=== PATIENT | male | born 1980 | race Caucasian/White ===

== ENCOUNTER 2023-11-20 23:12 | Inpatient (IN) | payer OTHER ==
[2023-11-21] VITALS: BMI 25.7
[2023-11-21] MEDS ORDERED: NALOXONE HCL (KLOXXADO) 8 MG SPRAY NS PRN (01:33)
[2023-11-21] MEDS ORDERED: MAG HYDROX/AL HYDROX/SIMETH 30 ML UNIT-DOSE CUP PO PRN (01:33)
[2023-11-21] MEDS ORDERED: IBUPROFEN 400 MG TABLET (FP) PO PRN (01:33)
[2023-11-21] MEDS ORDERED: BISMUTH SUBSALICYLATE 524 MG/30 ML PO PRN (01:33)
[2023-11-21] MEDS ORDERED: ACETAMINOPHEN 325 MG TABLET (FP) PO PRN (01:33)
[2023-11-21] MEDS ORDERED: LOPERAMIDE HCL 2 MG CAPSULE PO PRN (01:33)
[2023-11-21] MEDS ORDERED: NALOXONE HCL 0.4 MG/ML VIAL IM PRN (01:33)
[2023-11-21] MEDS ORDERED: ONDANSETRON *ODT* 4 MG TABLET SL PRN (01:33)
[2023-11-21] MEDS ORDERED: BENZOCAINE/MENTHOL (CHLORASEPTIC ) LOZENGE MM PRN (01:33)
[2023-11-21] MEDS ORDERED: MAGNESIUM HYDROX 2400MG/30ML ORAL SUSPENSION 30 ML CUP PO PRN (01:33)
[2023-11-21] MEDS ORDERED: BENZONATATE 200 MG CAPSULE PO PRN (01:33)
[2023-11-21] MEDS ORDERED: DICYCLOMINE HCL 10 MG CAPSULE PO PRN (01:33)
[2023-11-21] MEDS ORDERED: POLYETHYLENE GLYCOL (HEALTHYLAX) 3350 17 GM PACKET PO PRN (01:33)
[2023-11-21] MEDS ORDERED: guaiFENesin 600 MG TABLET.ER (FP) PO PRN (01:33)
[2023-11-21] MEDS ORDERED: chlordiazePOXIDE HCL 25 MG CAPSULE PO PRN (09:24)
[2023-11-21] MEDS: PRENATAL VITAMINS W/ FOLIC ACID TABLET (FP) PO SCH (10:21)
[2023-11-21] MEDS: DIVALPROEX NA *ER* EXTEND REL 500 MG TABLET.SA (FP) PO SCH (10:22)
[2023-11-21] MEDS: chlordiazePOXIDE HCL 25 MG CAPSULE PO SCH (10:22)
[2023-11-21] MEDS ORDERED: MELATONIN 5 MG TABLETS PO SCH (22:00)
[2023-11-21] MEDS: THIAMINE 100 MG TABLET PO SCH (22:30)
[2023-11-21] MEDS: SUVOREXANT 10 MG TABLET PO PRN (22:32)
[2023-11-22 10:16] LABS: HEMATOCRIT 42.7 % (35.4-49); HEMOGLOBIN 14.6 GM/dL (11.7-16.9); MCH 32.4 pg (25.7-33.7); MCHC 34.2 g/dl (32.0-35.9); MEAN CELL VOLUME 94.8 fl (80-96); MEAN PLT VOLUME 8.2 fl (7.5-11.1); PLATELET COUNT 237 10^3/uL (134-434); RBC 4.51 M/mm3 (4.00-5.60); RDW 14.6 % (11.9-15.9); WHITE BLOOD COUNT 5.4 K/mm3 (4.0-10.0)
[2023-11-22 10:25] LABS: ALBUMIN 3.4 g/dl (3.4-5.0); BLOOD UREA NITROGEN 11.6 mg/dL (7-18)
[2023-11-22 10:28] LABS: CREATININE 0.7 mg/dL (0.55-1.3)
[2023-11-22 10:30] LABS: BILIRUBIN,TOTAL 0.2 mg/dL (0.2-1); TOT PROT 6.4 g/dl (6.4-8.2)
[2023-11-23] MEDS: chlordiazePOXIDE HCL 25 MG CAPSULE PO SCH (05:42)
[2023-11-23] MEDS: IBUPROFEN 600 MG TABLET (FP) PO PRN (07:20)
[2023-11-24] MEDS ORDERED: chlordiazePOXIDE HCL 10 MG CAPSULE PO PRN
[2023-11-24] MEDS: chlordiazePOXIDE HCL 10 MG CAPSULE PO SCH (05:45)
[2023-11-24] MEDS: METHOCARBAMOL 500 MG TABLET PO PRN (23:01)
[2023-11-25] MEDS: chlordiazePOXIDE HCL 10 MG CAPSULE PO SCH (05:29)
[2023-11-26] MEDS: chlordiazePOXIDE HCL 10 MG CAPSULE PO ONE (05:40)
[2023-11-26] MEDS: hydrOXYzine PAMOATE 25 MG CAPSULE (FP) PO PRN (22:25)
[2023-11-27 09:13] VITALS: BP 125/79; PULSE 90; RESP 18; TEMP 98.2
== END 2023-11-27 11:45 | disposition other institution (70) | DRG 774 ==
LOC: YASAS 23:12 → Y6N 11-21 01:57
PROVIDERS: ADMIT Allergy & Immunology; ATTEND Surgery
PROC: HZ2ZZZZ Detoxification Services for Substance Abuse Treatment (ICD-10-PCS; principal; 2023-11-21)
DX: F10.230 Alcohol dependence with withdrawal, uncomplicated (principal); F14.20 Cocaine dependence, uncomplicated; F19.282 Other psychoactive substance dependence with psychoactive substance-induced sleep disorder; F19.24 Other psychoactive substance dependence with psychoactive substance-induced mood disorder; F32.9 Major depressive disorder, single episode, unspecified; G40.A09 Absence epileptic syndrome, not intractable, without status epilepticus; R20.2 Paresthesia of skin
CPT/HCPCS: 36415; 80053; 80164; 80307; 85027; 86780; 87811; 93005; 93010

== ENCOUNTER 2023-11-27 11:53 | Inpatient (IN) | payer OTHER ==
[2023-11-27] MEDS ORDERED: IBUPROFEN 400 MG TABLET (FP) PO PRN (13:42)
[2023-11-27] MEDS ORDERED: IBUPROFEN 600 MG TABLET (FP) PO PRN (13:42)
[2023-11-27] MEDS ORDERED: BENZOCAINE/MENTHOL (CHLORASEPTIC ) LOZENGE MM PRN (13:42)
[2023-11-27] MEDS ORDERED: LOPERAMIDE HCL 2 MG CAPSULE PO PRN (13:42)
[2023-11-27] MEDS ORDERED: guaiFENesin 600 MG TABLET.ER (FP) PO PRN (13:42)
[2023-11-27] MEDS ORDERED: NICOTINE 7 MG/24 HOURS TOPICAL PATCH TD PRN (13:42)
[2023-11-27] MEDS ORDERED: NICOTINE POLACRILEX 2 MG GUM BUC PRN (13:42)
[2023-11-27] MEDS ORDERED: MAGNESIUM HYDROX 2400MG/30ML ORAL SUSPENSION 30 ML CUP PO PRN (13:42)
[2023-11-27] MEDS ORDERED: MAG HYDROX/AL HYDROX/SIMETH 30 ML UNIT-DOSE CUP PO PRN (13:42)
[2023-11-27] MEDS ORDERED: POLYETHYLENE GLYCOL (HEALTHYLAX) 3350 17 GM PACKET PO PRN (13:42)
[2023-11-27] MEDS ORDERED: BENZONATATE 200 MG CAPSULE PO PRN (13:42)
[2023-11-27] MEDS: ACAMPROSATE CALCIUM 333 MG TABLET.DR PO SCH (14:44)
[2023-11-27] MEDS: THIAMINE 100 MG TABLET PO SCH (21:46)
[2023-11-27] MEDS: MELATONIN 5 MG TABLETS PO SCH (21:47)
[2023-11-27] MEDS: DIVALPROEX NA *ER* EXTEND REL 500 MG TABLET.SA (FP) PO SCH (21:48)
[2023-11-27] MEDS: BACITRACIN 0.9 GM PACKET TP SCH (21:48)
[2023-11-28] MEDS: PRENATAL VITAMINS W/ FOLIC ACID TABLET (FP) PO SCH (09:36)
[2023-11-29] MEDS: ACETAMINOPHEN 325 MG TABLET (FP) PO PRN (09:45)
[2023-11-30 14:32] LABS: INR 0.85 (0.83-1.09); PROTHROMBIN TIME (PATIENT) 9.6 SEC (9.7-13.0)
[2023-11-30 14:35] LABS: POTASSIUM 4.3 mmol/L (3.5-5.1)
[2023-11-30 14:41] LABS: ALBUMIN 3.5 g/dl (3.4-5.0); CALCIUM 9.2 mg/dL (8.5-10.1); MAGNESIUM 1.9 mg/dL (1.8-2.4)
[2023-11-30 14:42] LABS: BLOOD UREA NITROGEN 11.3 mg/dL (7-18)
[2023-11-30 14:43] LABS: CREATININE 0.7 mg/dL (0.55-1.3)
[2023-11-30 14:45] LABS: BILIRUBIN,TOTAL 0.2 mg/dL (0.2-1); TOT PROT 6.7 g/dl (6.4-8.2)
[2023-12-01] MEDS: hydrOXYzine PAMOATE 25 MG CAPSULE (FP) PO PRN (21:33)
[2023-12-04] MEDS ORDERED: SUVOREXANT 10 MG TABLET PO PRN (22:00)
[2023-12-05] MEDS: LACTULOSE 20 GM/30 ML UDC (FOR ORAL USE ONLY) PO SCH (21:27)
[2023-12-06] MEDS: CHOLECALCIFEROL (VIT D3) 400 UNIT (10 MCG) TABLET PO SCH (10:24)
[2023-12-06] MEDS: SUVOREXANT 10 MG TABLET PO PRN (21:16)
[2023-12-08] MEDS: SUVOREXANT 10 MG TABLET PO PRN (21:28)
[2023-12-10] MEDS: SUVOREXANT 10 MG TABLET PO PRN (21:30)
[2023-12-14] MEDS: SUVOREXANT 10 MG TABLET PO PRN (21:39)
[2023-12-17] MEDS: SUVOREXANT 10 MG TABLET PO PRN (21:27)
[2023-12-21] MEDS: SUVOREXANT 10 MG TABLET PO PRN (21:49)
[2023-12-23] MEDS ORDERED: SUVOREXANT 10 MG TABLET PO PRN (22:00)
[2023-12-24] MEDS: SUVOREXANT 10 MG TABLET PO PRN (21:09)
[2023-12-25] MEDS: SUVOREXANT 10 MG TABLET PO PRN (21:33)
[2023-12-26 07:09] VITALS: TEMP 98.4
[2023-12-26 09:08] VITALS: BP 118/76; PULSE 92; RESP 18
== END 2023-12-26 10:05 | disposition home or self-care (01) | DRG 772 ==
LOC: YASAS 11:53 → Y3W 11:54
PROVIDERS: ADMIT Allergy & Immunology; ATTEND Psychiatry & Neurology Pain Medicine
PROC: HZ42ZZZ Group Counseling for Substance Abuse Treatment, Cognitive-Behavioral (ICD-10-PCS; principal; 2023-11-27)
DX: F10.20 Alcohol dependence, uncomplicated (principal); F14.20 Cocaine dependence, uncomplicated; F19.282 Other psychoactive substance dependence with psychoactive substance-induced sleep disorder; F19.24 Other psychoactive substance dependence with psychoactive substance-induced mood disorder; F32.9 Major depressive disorder, single episode, unspecified; E72.20 Disorder of urea cycle metabolism, unspecified; G40.A09 Absence epileptic syndrome, not intractable, without status epilepticus
CPT/HCPCS: 36415; 80053; 82140; 82652; 83036; 83735; 85610; 86803